=== PATIENT | female | born 1955 | race African-American/Black ===

== ENCOUNTER → 2020-02-14 | Outpatient (CLI) | payer OTHER | LOC: SJCVCIMAG 02-06 07:57 | PROVIDERS: ATTEND Internal Medicine | DX: I35.8 Other nonrheumatic aortic valve disorders (principal); I49.3 Ventricular premature depolarization; I27.20 Pulmonary hypertension, unspecified; R00.0 Tachycardia, unspecified; I10 Essential (primary) hypertension; I25.10 Atherosclerotic heart disease of native coronary artery without angina pectoris; E78.5 Hyperlipidemia, unspecified; Z79.899 Other long term (current) drug therapy ==

== ENCOUNTER → 2020-03-30 | Outpatient (CLI) | payer OTHER ==
[~2020-03-30] VITALS: Ht 165.1 cm; Wt 132.4 kg
[~2020-03-30] MED LIST: ASA81BEC PO; B COMPLEX-FOLI1 EACH PO; LISINOPRIL-HCT1 EAC1 PO; MAGNESIUM250 M1 PO
[2020-03-30 08:59] VITALS: BP 117/58
--- NOTE | 2020-03-30 09:00 | EKG ---
[facility] [place] [address] ELECTROCARDIOGRAM REPORT Name: TIGRE JONES Room #: REG [facility].#: [id number] Admission: 03/30/20 Attend Phys: Tommy Hahn Discharge: Date of : 57 Report #: [id number] THIS REPORT FOR: cc: Vale Peña MD, Linda MD Lundgren,Chin Magallanes MD [facility] ~ THIS REPORT FOR: //name// [facility] Test Date: 2020-03-30 Test Time: 08:38:21 Pat Name: TIGRE JONES Department: Room: Gender: F Yoga Instructor: MAGGIE : 1955 Requested By: Tommy Hahn Order Number: [id number] MD: Chin Parnell Measurements Intervals [place] Rate: 83 P: 37 SD: 170 QRS: -64 QRSD: 132 T: 35 QT: 393 QTc: 462 Interpretive Statements Sinus rhythm RBBB and LAFB No previous ECG available for comparison Electronically Signed On 03-30-2020 9:00:15 CDT by Chin Parnell [email or web address] <ELECTRONICALLY SIGNED> By: Chin Parnell MD, [facility] 03/30/20899 7 7 Chin Parnell MD, [facility] /EPI
[2020-03-30 09:27] LABS: HEMATOCRIT 36.6 % (37.0-47.0); HEMOGLOBIN 12.2 gm/dL (12.0-15.0); MCH 29.1 pg (26.0-34.0); MCHC 33.3 g/dL (28.0-37.0); MCV 87.2 fL (80.0-100.0); RBC 4.2 mil/uL (4.20-5.00); RDW 14.7 % (10.5-14.5); WBC 3.4 thou/uL (4.0-11.0)
[2020-03-30 09:36] LABS: CALCIUM 9.1 mg/dL (8.5-10.1); CREATININE 0.7 mg/dL (0.6-1.0)
--- NOTE | 2020-04-09 00:53 | CATHLAB ---
[facility] [place] [address] [place] [address] INVASIVE PROCEDURE REPORT Name: ANAMNADINETIGRE Hunter Room #: REG [facility] Celio#: [id number] Admission: 03/30/20 Attend Phys: Tommy Hahn Discharge: Date of : 57 Report #: [id number] THIS REPORT FOR: cc: Vale Peña MD, Linda MD Lammoglia, Francisco J. MD ~ APPROVED REPORT Study performed: 03/30/2020 08:59:32 Patient Details Patient Status: Out-Patient Room #: The patient is a 64 year-old female Event Personnel Tommy Hahn Interior Specialist, Talia Leahy RTR, ТАТЬЯНА Scrub, Chapis Lagunas RTR Monitor, Mauro Maguire RN spray gun repairer Performed Art Access - R femoral artery* Left Heart Cath w/or w/o Coronaries [id number] [facility] [address] Initial Mod Sed Same Phys/QHP Gr5y 276929 61839 Mod Sed Same Phys/QHP Ea [id number] Hemostasis with Manual pressure, supervision of conscious sedation Indication Positive stress test, Chest pain Procedure Narrative The Right Groin^ was infiltrated with 1% Lidocaine subcutaneous anesthesia. A PINNACLE 4FR Sheath #[id number] sheath was inserted into the RFA^. Coronary angiography was performed using coronary diagnostic catheters. The right coronary system was accessed and visualized with a JR4 catheter. The left coronary system was accessed and visualized with a JL3.5 catheter. The left ventricle was accessed and visualized with a PIGTAIL catheter. Hemostasis was obtained with manual pressure following sheath removal without any complications. The patient tolerated the procedure well and there were no complications associated with the procedure. There was no hematoma. Intraoperative Conscious Sedation Sedation start time: 10:12 Case end Time: 10:43 [facility] [address] [place] [address] INVASIVE PROCEDURE REPORT Name: TIGRE JONES Room #: REG [facility]#: [id number] Admission: 03/30/20 Attend Phys: Tommy Norris Discharge: Date of : 57 Report #: [id number] Versed 3 mg Fluoro Time: 3.30 minutes Dose: DAP 7723.60 cGycm2 1138 mGy Contrast Type and Amount: Omnipaque 45 ml Diagnostic Cath Left Main moderate caliber vessel short in length bifurcates LAD and LCX vessel. It is free of significant lesions. LAD small caliber type II vessel which rapidly tapers in its midpoint towards the apex. moderate tortuousities as it courses towards the apex Diagonal 1 small caliber nonobstructive vessel Circumflex moderate caliber vessel coarsing posteriorly in av groove giving rise to marginal vessel as it coarses posteriorly and terminates as a small posterior wall branch OM1 short dimminuitive caliber vessel OM2 small to moderate caliber vessel free of highgrade lesions Right Coronary moderate caliber vessel of inferoposterior origin coarsing in av groove giving rise to right sided vessels and then a posterior descending artery at the crux of the heart without significant lesions. the vessel terminate as a small posterior wall trifurcating vessel R PDA small caliber vessel without significant lesions Left Ventriculography Left Ventriculography was not performed. Hemodynamics The aortic pressure is 115/59 mmHg with a mean of 63 mmHg. The left ventricular pressure is 132/15 mmHg with a mean of mmHg. The left ventricular end diastolic pressure is 24 mmHg. Conclusion 1. coronary artery disease mild nonostructive 2. normal hemodynamics Recommendations Cardiac Risk Reduction Program Medical Therapy <ELECTRONICALLY SIGNED> By: Tommy Hahn MD 04/09/2052 Tommy Hahn MD /INF
== END ==
LOC: CATH 08:07
PROVIDERS: ATTEND Internal Medicine
DX: R07.9 Chest pain, unspecified (principal); I25.10 Atherosclerotic heart disease of native coronary artery without angina pectoris; I10 Essential (primary) hypertension; E78.5 Hyperlipidemia, unspecified; G62.9 Polyneuropathy, unspecified; Z79.899 Other long term (current) drug therapy; Z98.890 Other specified postprocedural states; Z88.8 Allergy status to other drugs, medicaments and biological substances; Z82.49 Family history of ischemic heart disease and other diseases of the circulatory system; Z83.3 Family history of diabetes mellitus; Z80.3 Family history of malignant neoplasm of breast